=== PATIENT | female | born 1980 | race Caucasian/White ===

== ENCOUNTER → 2021-05-19 15:09 | Outpatient (BNVA) | payer OTHER, SELFPAY | PROVIDERS: Visit Provider Advanced Practice Midwife | DX: Z32.01 Encounter for pregnancy test, result positive (principal); O09.529 Supervision of elderly multigravida, unspecified trimester; Z3A.00 Weeks of gestation of pregnancy not specified; O99.320 Drug use complicating pregnancy, unspecified trimester; F11.20 Opioid dependence, uncomplicated; O26.899 Other specified pregnancy related conditions, unspecified trimester; Z67.91 Unspecified blood type, Rh negative; O99.210 Obesity complicating pregnancy, unspecified trimester; E66.9 Obesity, unspecified; F17.210 Nicotine dependence, cigarettes, uncomplicated; O99.330 Smoking (tobacco) complicating pregnancy, unspecified trimester | CPT/HCPCS: 99202 ==

== ENCOUNTER 2021-05-26 08:56 | Outpatient (REF) | payer OTHER, SELFPAY ==
--- NOTE | ~2021-05-26 | US_ITS ---
EXAMINATION: OBSTETRICAL ULTRASOUND, FIRST TRIMESTER HISTORY: A 40-year-old the at the 12.1 weeks of gestation Advanced maternal age NT screening COMPARISON: None TECHNIQUE: Real time transabdominal imaging with color and M-mode Doppler. FINDINGS: A single, live IUP CRL of 57.8 mm c/w 12.3wks is noted. Heart Rate: 183 beats per minute. Normal yolk sac seen. NT was 1.16.mm. NB Present The embryo appears sonographically wnl for this GA. Both maternal ovaries are seen and appear normal. GESTATIONAL AGE: 1. Established GA: 12.1 wks 2. GA from AUA: 12.3 wks ESTIMATED DATE OF DELIVERY: 1. Established DORENE: 12/07/2021 2. DORENE from AUA: 12/05/2021 US/US OB 1T nuc measure IMPRESSION: 1. A single live IUP 2. Size equals dates 3. NT of 1.16 mm MFM Consultation: I reviewed the ultrasound findings along with significance of NT measurement. The NT of less than 3mm is generally reassuring. However, the sensitivity for T21 detection is only 60%. I reviewed the availability of serum aneuploidy screening which includes cell-free DNA and placental protein based tests. I discussed the sensitivity, false-positive rate, and other limitations associated with each test. I also reviewed the availability of invasive diagnostic tests that are associated small but definite risk of miscarriage. We also reviewed the differences between screening tests and diagnostic tests. After our discussion, she opted for the First trimester screening that is based on cell-free DNA or non-invasive testing (NIPT). The result will be faxed to your office in approximately 7 days. A follow up at 18 weeks for survey has been scheduled. Thank you very much for this referral. Total time 30 minutes. The time spent was devoted to counseling the patient about the disease and diagnosis, coordinating care including reviewing her records, pertinent lab data and studies, as well as discussing diagnostic evaluation and workup, plan therapeutic interventions and future disposition of care. This includes any additional research needed to obtain further information in formulating the plan of care of this patient. This note was generated with a voice recognition program. Please excuse any errors which may have been overlooked during my review of this note. Sometimes these errors may affect the content or meaning of a given sentence.
== END 2021-05-26 08:57 | disposition home or self-care (01) ==
LOC: HO.US 08:56
PROVIDERS: Visit Provider Advanced Practice Midwife
DX: Z36.82 Encounter for antenatal screening for nuchal translucency (principal)
CPT/HCPCS: 76813

== ENCOUNTER → 2021-06-01 13:30 | Outpatient (BNVA) | payer OTHER, SELFPAY | PROVIDERS: Visit Provider Advanced Practice Midwife | DX: O09.522 Supervision of elderly multigravida, second trimester (principal); O26.892 Other specified pregnancy related conditions, second trimester; Z67.91 Unspecified blood type, Rh negative; O99.322 Drug use complicating pregnancy, second trimester; F11.20 Opioid dependence, uncomplicated; Z87.898 Personal history of other specified conditions; O09.292 Supervision of pregnancy with other poor reproductive or obstetric history, second trimester; O99.212 Obesity complicating pregnancy, second trimester; O99.332 Smoking (tobacco) complicating pregnancy, second trimester; Z3A.14 14 weeks gestation of pregnancy; Z79.899 Other long term (current) drug therapy | CPT/HCPCS: 99212 ==

== ENCOUNTER 2021-06-13 10:37 | Outpatient (REF) | payer OTHER, SELFPAY ==
[2021-06-13 12:32] LABS: Glucose 1 Hour PP 50gm Dose 180 mg/dL (60-140)
[2021-06-13 12:41] LABS: Hematocrit 35.3 % (37-47); Hemoglobin 12.1 g/dl (12.0-16.0); Mean Corpuscular HGB Conc 34.3 g/dl (31.0-35.0); Mean Corpuscular Hemoglobin 29.5 pg (27.0-33.0); Mean Corpuscular Volume 86.1 fL (80-98); Platelet Count 224 X10*3/uL (160-400); White Blood Count 9.6 X10*3/uL (4.8-10.8)
[2021-06-13 13:14] LABS: Amphetamine Screen Urine Not Detected (Not Detect); Barbiturates, Urine Not Detected (Not Detect); Benzodiazepines Screen Urine Not Detected (Not Detect); Cannabinoid Screen Urine Not Detected (Not Detect); Cocaine Screen Urine Not Detected (Not Detect); Fentanyl, urine Not Detected (Not Detect); Opiate Screen Urine Not Detected (Not Detect); Phencyclidine Screen Urine Not Detected (Not Detect)
[2021-06-14 07:54] LABS: HBsAGNum1 0.17 S/CO (0.00-0.99); HIV AB/AG Nonreactive (Nonreactive); HIV Num 1 0.06 S/CO (0.00-0.99); Hepatitis B Surface Antigen Negative (Negative); ~HepC Num1 0.09 S/CO (0.00-0.79); ~Hepatitis C Antibody Nonreactive (Nonreactive)
[2021-06-14 08:08] LABS: Syphilis Screen Nonreactive (Nonreactive)
== END 2021-06-13 10:38 | disposition home or self-care (01) ==
LOC: HO.LAB 10:37
PROVIDERS: Visit Provider Advanced Practice Midwife
DX: Z32.01 Encounter for pregnancy test, result positive (principal)
CPT/HCPCS: 36415; 80307; 85027; 86762; 86780; 86787; 86803; 86850; 86900; 86901; 87086; 87340; 87389

== ENCOUNTER 2021-07-03 08:52 | Outpatient (REF) | payer OTHER, SELFPAY ==
[2021-07-03 10:15] LABS: Glucose Fasting 76 mg/dL (60-99)
[2021-07-03 11:28] LABS: Glucose 1 Hour 168 mg/dL
[2021-07-03 12:33] LABS: Glucose 2 Hour 153 mg/dL
[2021-07-03 13:19] LABS: Glucose 3 Hour 81 mg/dL
== END 2021-07-03 08:53 | disposition home or self-care (01) ==
LOC: HO.LAB 08:52
PROVIDERS: Visit Provider Advanced Practice Midwife
DX: R73.09 Other abnormal glucose (principal)
CPT/HCPCS: 36415; 82951